=== PATIENT | male | born 1975 | race Caucasian/White ===

== ENCOUNTER 2017-06-28 18:14 | Observation (INO) | payer SELFPAY ==
[2017-06-28] MEDS ORDERED: Aspirin 81 MG Tab.Chew PO ONE (18:28)
[2017-06-28] MEDS ORDERED: Sodium Chloride 0.9% 2.5 ML Syringe FLUSH PRN (18:28)
[2017-06-28] MEDS ORDERED: Sodium Chloride 0.9% 10 ML Syringe FLUSH PRN (18:28)
--- NOTE | 2017-06-28 18:28 | EDM.PDOC ---
<Brittni Steen - Last Filed: 06/28/17 18:52> ED HPI GENERAL MEDICAL PROBLEM - General Chief Complaint: Chest Pain Stated Complaint: ANXIETY/CHEST PAIN Time Seen by Provider: 06/28/17 18:20 Source of Information: Reports: Patient History Limitations: Reports: No Limitations - History of Present Illness INITIAL COMMENTS - FREE TEXT/NARRATIVE: History of present illness: []Patient was sitting at the truck stop approximately hour ago and after eating he developed left-sided chest pain that feels "sore and tight" he states his pain was a 4/10 and here in the ER it is a 2/10. He states he felt a little short of breath and lightheaded. Patient came in to town today from [place] looking for work and states there are no hotels available. Patient had a similar episode 2 weeks ago when he was at home in [place] but did not seek medical attention. Patient is a smoker and was diagnosed with hypertension along time ago but has not been able to afford medications. He states his father of a heart attack. Review of systems: As per history of present illness and below otherwise all systems reviewed and negative. Past medical history: As per history of present illness and as reviewed below otherwise noncontributory. Surgical history: As per history of present illness and as reviewed below otherwise noncontributory. Social history: No reported history of drug or alcohol abuse. Family history: As per history of present illness and as reviewed below otherwise noncontributory. Physical exam: General: Well developed, well nourished in NAD HEENT: Atraumatic, normocephalic, pupils reactive, negative for conjunctival pallor or scleral icterus, mucous membranes moist, throat clear, neck supple, nontender, trachea midline. Lungs: Clear to auscultation, breath sounds equal bilaterally, chest nontender. Heart: S1S2, regular, negative for clicks, rubs, or JVD. Abdomen: Soft, nondistended, nontender. Negative for masses or hepatosplenomegaly. Negative for costovertebral tenderness. Pelvis: Stable nontender. Genitourinary: Deferred. Rectal: Deferred. Extremities: Atraumatic, negative for cords or calf pain. Neurovascular unremarkable. Neuro: Awake, alert, oriented. Cranial nerves II through XII unremarkable. Cerebellum unremarkable. Motor and sensory unremarkable throughout. Exam nonfocal. Diagnostics: []EKG shows early repolarization no acute ischemia, CBC, chemistry, troponin and chest x-ray pending. Dr. Croft to check results prior to admission any positive results patient is to be transferred to [place]. Therapeutics: []Aspirin nitroglycerin given Impression: []Acute coronary syndrome Plan: []Admit to Dr. Wooten for rule out and further workup. Definitive disposition and diagnosis as appropriate pending reevaluation and review of above. Left Chest Pain Score (Numeric/FACES): 3 - Related Data Allergies Allergy/AdvReac Type Severity Reaction Status Date / Time meloxicam Allergy Vomiting Verified 06/28/17 18:26 Home Meds: Home Meds . [No Known Home Meds] 06/28/17 [History] ED ROS GENERAL - Review of Systems Review Of Systems: See Below (History of present illness:) ED EXAM, GENERAL - Physical Exam Exam: See Below (See history of present illness) Course - Vital Signs Last Recorded V/S: Last Vital Signs Temp 37.2 C 06/28/17 18:20 Pulse 90 06/28/17 19:07 Resp 17 06/28/17 19:07 BP 128/97 H 06/28/17 19:07 Pulse Ox 98 06/28/17 19:07 - Orders/Labs/Meds Orders: Active Orders 24 hr Category Date Time Status Patient Status [ADT] Stat ADT 06/28/17 19:05 Active EKG Documentation Completion [RC] STAT Care 06/28/17 18:28 Active Chest 1V Frontal [CR] Stat Exams 06/28/17 18:28 Taken Sodium Chloride 0.9% [Saline Flush] Med 06/28/17 18:28 Active 10 ml FLUSH ASDIRECTED PRN Sodium Chloride 0.9% [Saline Flush] Med 06/28/17 18:28 Active 2.5 ml FLUSH ASDIRECTED PRN Saline Lock Insert [OM.PC] Stat Oth 06/28/17 18:28 Ordered Medication Orders Sodium Chloride (Saline Flush) 10 ml FLUSH ASDIRECTED PRN PRN Reason: Keep Vein Open Last Admin: 06/28/17 19:15 Dose: 10 ml Sodium Chloride (Saline Flush) 2.5 ml FLUSH ASDIRECTED PRN PRN Reason: Keep Vein Open Last Admin: 06/28/17 19:14 Dose: 2.5 ml Labs: Laboratory Tests 06/28/17 06/28/17 Range/Units 18:36 18:36 WBC 14.26 H (4.0-11.0) K/uL RBC 5.37 (4.50-5.90) M/uL Hgb 16.3 (13.0-17.0) g/dL Hct 46.3 (38.0-50.0) % MCV 86.2 (80.0-98.0) fL MCH 30.4 (27.0-32.0) pg MCHC 35.2 (31.0-37.0) g/dL RDW Std Deviation 42.1 (28.0-62.0) fl RDW Coeff of Christopher 13 (11.0-15.0) % Plt Count 239 (150-400) K/uL MPV 11.20 (7.40-12.00) fL Neut % (Auto) 74.5 (48.0-80.0) % Lymph % (Auto) 16.4 (16.0-40.0) % [place] % (Auto) 8.3 (0.0-15.0) % Eos % (Auto) 0.5 (0.0-7.0) % Baso % (Auto) 0.3 (0.0-1.5) % Neut # (Auto) 10.6 H (1.4-5.7) K/uL Lymph # (Auto) 2.3 (0.6-2.4) K/uL [place] # (Auto) 1.2 H (0.0-0.8) K/uL Eos # (Auto) 0.1 (0.0-0.7) K/uL Baso # (Auto) 0.0 (0.0-0.1) K/uL Nucleated RBC % 0.0 /100WBC Nucleated RBCs # 0 K/uL Sodium 144 (136-148) mmol/L Potassium 3.5 (3.5-5.1) mmol/L Chloride 105 (98-107) mmol/L Carbon Dioxide 29.9 (21.0-32.0) mmol/L BUN 13 (7.0-18.0) mg/dL Creatinine 1.0 (0.8-1.3) mg/dL Est Cr Clr Drug Dosing 104.54 mL/min Estimated GFR (MDRD) > 60.0 ml/min Glucose 128 H (74-106) mg/dL Calcium 8.7 (8.5-10.1) mg/dL Total Bilirubin 0.4 (0.2-1.0) mg/dL AST 15 (15-37) U/L ALT 18 (14-63) U/L Alkaline Phosphatase 58 (46-116) U/L Troponin I < 0.050 (0.000-0.056) ng/mL Total Protein 6.9 (6.4-8.2) g/dL Albumin 3.7 (3.4-5.0) g/dL Globulin 3.2 (2.0-3.5) g/dL Albumin/Globulin Ratio 1.2 L (1.3-2.8) Meds: Medications Generic Name Dose Route Start Last Admin Trade Name Freq PRN Reason Stop Dose Admin Sodium Chloride 10 ml 06/28/17 18:28 06/28/17 19:15 Saline Flush FLUSH 10 ml ASDIRECTED PRN Administration Keep Vein Open Sodium Chloride 2.5 ml 06/28/17 18:28 06/28/17 19:14 Saline Flush FLUSH 2.5 ml ASDIRECTED PRN Administration Keep Vein Open Discontinued Medications Generic Name Dose Route Start Last Admin Trade Name Freq PRN Reason Stop Dose Admin Aspirin 324 mg 06/28/17 18:28 06/28/17 18:38 Aspirin PO 06/28/17 18:29 324 mg ONETIME ONE Administration Nitroglycerin 0.4 mg 06/28/17 18:28 06/28/17 18:50 Nitrostat SL 0.4 mg Q5M PRN Administration Chest Pain Nitroglycerin 1 gm 06/28/17 19:04 06/28/17 19:14 Nitro-Bid 2% TOP 06/28/17 19:05 1 gm ONETIME ONE Administration Departure - Departure Disposition: Refer to Observation Clinical Impression: Acute coronary syndrome Forms: ED Department Discharge - My Orders Last 24 Hours: My Active Orders 06/28/17 19:05 Patient Status [ADT] Stat - Assessment/Plan Last 24 Hours: My Active Orders 06/28/17 19:05 Patient Status [ADT] Stat <Mala Croft - Last Filed: 06/28/17 19:35> ED HPI GENERAL MEDICAL PROBLEM - History of Present Illness INITIAL COMMENTS - FREE TEXT/NARRATIVE: This is Dr. Croft dictating an addendum note is have assumed care of this case at 7 PM. After 3 nitros sublingual the patient's chest pain is a 1/10 so nitroglycerin placed will be given. I will monitor the labs and chest x-ray results and plan for observation admission per Dr. Wooten. Dr. Steen has had a conversation with Dr. Wooten and admit will be placed pending those results. Departure - Departure Time of Disposition: 19:35 Condition: Good - My Orders Last 24 Hours: My Active Orders 06/28/17 19:05 Patient Status [ADT] Stat - Assessment/Plan Last 24 Hours: My Active Orders 06/28/17 19:05 Patient Status [ADT] Stat
[2017-06-28] MEDS: Nitroglycerin 0.4 MG Tab.SL SL PRN ×3 (18:39→18:50)
[2017-06-28] MEDS ORDERED: Nitroglycerin 2% Oint 1 GM UD Packet TOP ONE (19:04)
[2017-06-28 19:14] LABS: CHLORIDE,CL 105 mmol/L (98-107); SODIUM,NA 144 mmol/L (136-148)
[2017-06-28] MEDS ORDERED: Acetaminophen 325 MG Tab PO PRN (20:05)
[2017-06-28] MEDS ORDERED: Ondansetron 4 MG/2 ML SDV IVPUSH PRN (20:05)
--- NOTE | 2017-06-28 20:13 | PCM.HP ---
H&P History of Present Illness - General Admit Problem/Dx: Admission Diagnosis/Problem Admission Diagnosis/Problem Acute coronary syndrome - History of Present Illness Initial Comments - Free Text/Narative: 41 yo male who presents to the ED with chest pain. Patient reports several weeks of anxiety and panic attacks. He reports he used to be on blood pressure medications, lexapro and ativan but has not seen a doctor in several years. He has been in a lot of stress as he is facing felony charges for neglecting child support. He is looking for a job and drove to [place] today from [place] in his car. He could not find a hotel room. He reports left sided chest soreness. He had a severe episode last week which he thought he had a heart attack. He denies any fevers, cough, shortness of breath, or palpitations. He smokes 2 packs a day and drinks one can of beer a day. Left Chest Pain Score (Numeric/FACES): 3 - Related Data Allergies/Adverse Reactions: Allergies Allergy/AdvReac Type Severity Reaction Status Date / Time meloxicam Allergy Vomiting Verified 06/28/17 18:26 Home Medications: Home Meds Lisinopril 10 mg PO DAILY #30 tablet 06/29/17 [Rx] Past Medical History Respiratory History: Reports: Asthma Musculoskeletal History: Reports: Arthritis Neurological History: Reports: Migraines Psychiatric History: Reports: Anxiety, Panic Attack, PTSD, Other (See Below) Other Psychiatric History: asocial disorder - Infectious Disease History Infectious Disease History: Reports: Chicken Pox - Past Surgical History Respiratory Surgical History: Reports: None Social & Family History - Family History Family Medical History: Noncontributory - Tobacco Use Smoking Status *Q: Current Every Day Smoker Years of Tobacco use: 30 Packs/Tins Daily: 2 - Recreational Drug Use Recreational Drug Use: No H&P Review of Systems - Review of Systems: Review Of Systems: ROS reveals no pertinent complaints other than HPI. Exam - Exam Exam: See Below - Vital Signs Vital Signs: Last Vital Signs Temp 37.2 C 06/28/17 18:20 Pulse 90 06/28/17 19:39 Resp 18 06/28/17 19:39 BP 133/90 06/28/17 19:39 Pulse Ox 96 06/28/17 19:39 Weight: 80.4 kg - Exam General: Alert, Oriented HEENT: Mucosa Moist & [place] Lungs: Clear to Auscultation, Normal Respiratory Effort Cardiovascular: Regular Rate, Regular Rhythm GI/Abdominal Exam: Soft, Non-Tender Extremities: No Pedal Edema Skin: Warm, Intact Psychiatric: Normal Affect - Patient Data Result Diagrams: 06/29/17 07:15 06/28/17 18:36 *Q Meaningful Use (ADM) - VTE *Q VTE Criteria *Q: - Stroke *Q Stroke Criteria *Q: - AMI *Q AMI Criteria *Q: Problem List Initiated/Reviewed/Updated: Yes Orders Last 24hrs: Active Orders 24 hr Category Date Time Status Antiembolic Devices [RC] PER UNIT ROUTINE Care 06/28/17 20:07 Ordered Cardiac Monitoring [RC] CONTINUOUS Care 06/28/17 20:06 Ordered Oxygen Therapy [RC] PRN Care 06/28/17 20:05 Ordered Up ad Zaira [RC] ASDIRECTED Care 06/28/17 20:05 Ordered VTE/DVT Education [RC] PER UNIT ROUTINE Care 06/28/17 20:05 Ordered Vital Signs [RC] Q4H Care 06/28/17 20:05 Ordered Regular Diet [DIET] Diet 06/28/17 Breakfast Ordered CBC WITH AUTO DIFF [HEME] AM Lab 06/29/17 05:11 Ordered TROPONIN I [CHEM] Q6H Lab 06/29/17 01:00 Ordered TROPONIN I [CHEM] Q6H Lab 06/29/17 07:00 Ordered Acetaminophen [Tylenol] Med 06/28/17 20:05 Ordered 650 mg PO Q4H PRN Ondansetron [Zofran] Med 06/28/17 20:05 Ordered 4 mg IVPUSH Q4H PRN Sequential Compression Device [OM.PC] Per Unit Routine Oth 06/28/17 20:06 Ordered Resuscitation Status Routine Resus Stat 06/28/17 20:05 Ordered Medication Orders Sodium Chloride (Saline Flush) 10 ml FLUSH ASDIRECTED PRN PRN Reason: Keep Vein Open Last Admin: 06/28/17 19:15 Dose: 10 ml Sodium Chloride (Saline Flush) 2.5 ml FLUSH ASDIRECTED PRN PRN Reason: Keep Vein Open Last Admin: 06/28/17 19:14 Dose: 2.5 ml Assessment/Plan Comment:: 41 yo male who presents with chest pain and uncontrolled hypertension. His blood pressure has improved with nitro given in the ED. Initial EKG and cardiac enzymes were negative for signs of ischemia. We will monitor overnight on telemetry and trend his cardiac enzymes. He does have a unexplained leukocytosis. Does not appear infected will repeat CBC tomorrow.
--- NOTE | 2017-06-29 07:44 | CR ---
EXAM DATE: 06/28/17 PATIENT'S AGE: 41 Patient: PETER TRIMBLE Facility: [place], [place] Site . Site : [id number] Study: XRay Chest [id number]/6/2018 7:20:15 PM Ordering Physician: Enio Elkins Final Report: INDICATION: Smoker, chest pain and shortness of breath TECHNIQUE: Chest 1 view. COMPARISON: None FINDINGS: Cardiovascular and mediastinum: Heart size and vasculature are normal in caliber and appearance. Mediastinum is within normal limits. Lungs and pleural space: Lungs are clear. No sign of infiltrate or mass. No sign of pleural effusion. No pneumothorax. Bones and soft tissues: No significant findings. IMPRESSION: Unremarkable chest. Dictated by: Geovanny Paul MD @ 06/28/2017 19:33:40 (Electronic Signature) Report Signed by Proxy. [facility], [place]
--- NOTE | 2017-06-29 11:23 | PCM.DCSUM1 ---
<Harvey Ladd Z - Last Filed: 06/29/17 11:16> Discharge Summary - Hospital Course HPI Initial Comments: Discharge Summary Date of admission: 06/28/2017 Date of discharge: 06/29/2017 Admitting diagnosis: #1. Chest pain, hypertension, anxiety ACS rule out #2. Nicotine dependence #3. leukocytosis of unknown significance #4. #5. Discharge diagnoses: #1. Chest pain now resolved anxiety under control troponins negative 3 acute coronary syndrome ruled out #2. Essential hypertension #3. Anxiety #4. Nicotine dependence #5. Acidosis of unknown significance/origin Consultations: None Procedures: None Hospitalization course: Patient was admitted overnight secondary to chest pain, elevated blood pressure levels. Patient had troponins done 3 which were all negative. Patient's initial blood pressure was elevated but that also was under better control once patient was admitted. Patient's chest x-ray did not indicate any infectious process, however he did have an elevated leukocytosis of unknown significance. Patient did not have any elevated temperatures nor any unstable vital signs. Patient's blood pressures that were lower secondary to his nitroglycerin patch that was placed on his chest, once the patch was removed the patient's blood pressures did normalize. Hhe denied any fevers, chills, shortness of breath, nausea, vomiting, diarrhea, or any other signs of systemic infection. When seen on 06/29/2017, patient was adamant about needing a cigarette. We did not start his nicotine replacement secondary to acute coronary syndrome rule out due to chest pain. The patient was stable and did not have elevated troponins, did not have chest pain at the present moment. Decision was made to discharge the patient so that he may go and have a cigarette. She was counseled on the importance of cessation of smoking. Patient is to have an outpatient follow-up with Dr. Girard for assessment of his leukocytosis and chest pain. Patient is also to have a follow-up with outpatient cardiac stress test. Disposition on discharge: Home Condition on discharge: Stable Discharge medications: Lisinopril 10 mg daily Follow-up instructions: Dr. Girard establish PCP, outpatient cardiac stress test - Discharge Data Discharge Date: 06/29/17 Discharge Disposition: Home, Self-Care 01 Condition: Fair - Patient Instructions Diet: Heart Healthy Diet Driving: May Drive Today Showering/Bathing: May Shower Notify Provider of: Fever, Increased Pain, Swelling and Redness, Drainage - Discharge Plan Prescriptions/Med Rec: Lisinopril 10 mg PO DAILY #30 tablet Home Medications: Home Meds Lisinopril 10 mg PO DAILY #30 tablet 06/29/17 [Rx] Patient Handouts: Acute Coronary Syndrome Referrals: Popeye Girard MD [Resident] - 07/12/17 2:30 pm - Discharge Summary/Plan Comment DC Time >30 min.: No - Patient Data Vitals - Most Recent: Last Vital Signs Temp 36.7 C 06/29/17 07:48 Pulse 78 06/29/17 07:48 Resp 16 06/29/17 07:48 BP 96/54 L 06/29/17 07:48 Pulse Ox 94 L 06/29/17 07:48 Weight - Most Recent: 80.4 kg Lab Results - Last 24 hrs: Laboratory Results - last 24 hr 06/29/17 06/29/17 06/29/17 Range/Units 01:01 07:15 07:15 WBC 15.61 H (4.0-11.0) K/uL RBC 5.02 (4.50-5.90) M/uL Hgb 15.0 (13.0-17.0) g/dL Hct 43.4 (38.0-50.0) % MCV 86.5 (80.0-98.0) fL MCH 29.9 (27.0-32.0) pg MCHC 34.6 (31.0-37.0) g/dL RDW Std Deviation 42.6 (28.0-62.0) fl RDW Coeff of Christopher 14 (11.0-15.0) % Plt Count 217 (150-400) K/uL MPV 10.90 (7.40-12.00) fL Neut % (Auto) 68.7 (48.0-80.0) % Lymph % (Auto) 20.6 (16.0-40.0) % [place] % (Auto) 9.1 (0.0-15.0) % Eos % (Auto) 1.4 (0.0-7.0) % Baso % (Auto) 0.2 (0.0-1.5) % Neut # (Auto) 10.7 H (1.4-5.7) K/uL Lymph # (Auto) 3.2 H (0.6-2.4) K/uL Major # (Auto) 1.4 H (0.0-0.8) K/uL Eos # (Auto) 0.2 (0.0-0.7) K/uL Baso # (Auto) 0.0 (0.0-0.1) K/uL Nucleated RBC % 0.0 /100WBC Nucleated RBCs # 0 K/uL Troponin I < 0.050 < 0.050 (0.000-0.056) ng/mL Med Orders - Current: Current Medications Discontinued Medications Acetaminophen (Tylenol) 650 mg PO Q4H PRN PRN Reason: Pain (Mild 1-3)/fever Aspirin (Aspirin) 324 mg PO ONETIME ONE Stop: 06/28/17 18:29 Last Admin: 06/28/17 18:38 Dose: 324 mg Nitroglycerin (Nitrostat) 0.4 mg SL Q5M PRN PRN Reason: Chest Pain Last Admin: 06/28/17 18:50 Dose: 0.4 mg Nitroglycerin (Nitro-Bid 2%) 1 gm TOP ONETIME ONE Stop: 06/28/17 19:05 Last Admin: 06/28/17 19:14 Dose: 1 gm Ondansetron HCl (Zofran) 4 mg IVPUSH Q4H PRN PRN Reason: Nausea Sodium Chloride (Saline Flush) 10 ml FLUSH ASDIRECTED PRN PRN Reason: Keep Vein Open Last Admin: 06/28/17 19:15 Dose: 10 ml Sodium Chloride (Saline Flush) 2.5 ml FLUSH ASDIRECTED PRN PRN Reason: Keep Vein Open Last Admin: 06/28/17 19:14 Dose: 2.5 ml *Q Meaningful Use (DIS) - VTE *Q VTE Criteria *Q: - Stroke *Q Stroke Criteria *Q: - AMI *Q AMI Criteria *Q: <Miguel Wooten - Last Filed: 06/30/17 20:36> - Patient Data Vitals - Most Recent: Last Vital Signs Temp 36.7 C 06/29/17 07:48 Pulse 78 06/29/17 07:48 Resp 16 06/29/17 07:48 BP 96/54 L 06/29/17 07:48 Pulse Ox 94 L 06/29/17 07:48 Med Orders - Current: Current Medications Discontinued Medications Acetaminophen (Tylenol) 650 mg PO Q4H PRN PRN Reason: Pain (Mild 1-3)/fever Aspirin (Aspirin) 324 mg PO ONETIME ONE Stop: 06/28/17 18:29 Last Admin: 06/28/17 18:38 Dose: 324 mg Nitroglycerin (Nitrostat) 0.4 mg SL Q5M PRN PRN Reason: Chest Pain Last Admin: 06/28/17 18:50 Dose: 0.4 mg Nitroglycerin (Nitro-Bid 2%) 1 gm TOP ONETIME ONE Stop: 06/28/17 19:05 Last Admin: 06/28/17 19:14 Dose: 1 gm Ondansetron HCl (Zofran) 4 mg IVPUSH Q4H PRN PRN Reason: Nausea Sodium Chloride (Saline Flush) 10 ml FLUSH ASDIRECTED PRN PRN Reason: Keep Vein Open Last Admin: 06/28/17 19:15 Dose: 10 ml Sodium Chloride (Saline Flush) 2.5 ml FLUSH ASDIRECTED PRN PRN Reason: Keep Vein Open Last Admin: 06/28/17 19:14 Dose: 2.5 ml *Q Meaningful Use (DIS) - VTE *Q VTE Criteria *Q: - Stroke *Q Stroke Criteria *Q: - AMI *Q AMI Criteria *Q: - Free Text/Narrative Note: I have examined the patient. I have discussed findings and treatment plan with the resident. I agree with the assessment and plan outlined in the following resident's note.
== END 2017-06-29 09:40 | disposition home or self-care (01) ==
LOC: MW.ED 18:14 → MW.MS 19:05
PROVIDERS: ADMIT Internal Medicine; ATTEND Internal Medicine
DX: R07.9 Chest pain, unspecified (principal); F41.9 Anxiety disorder, unspecified; I10 Essential (primary) hypertension; F17.210 Nicotine dependence, cigarettes, uncomplicated; E87.2 Acidosis; M19.90 Unspecified osteoarthritis, unspecified site; D72.829 Elevated white blood cell count, unspecified; Z79.899 Other long term (current) drug therapy; Z88.8 Allergy status to other drugs, medicaments and biological substances
CPT/HCPCS: 36415; 71045; 80053; 84484; 85025; 99285; A9270; G0378; 99284